=== PATIENT | female | born 1935 | race Caucasian/White ===

== ENCOUNTER 2023-04-15 14:27 | Inpatient (IN) | payer OTHER ==
[~2023-04-15] VITALS: Ht 165.1 cm; Wt 74.8 kg
[2023-04-15] MEDS ORDERED: SYNTHROID88 MCG PO (14:51)
[2023-04-15] MEDS ORDERED: MEMANTINE HCL ER7 MG PO (14:52)
--- NOTE | 2023-04-15 14:53 | NUR ---
SE RECIBE PACIENTE LA CUAL ESTA ORIENTADA Y ALERTA X3 LA MISAM REFIERE PRESENTAR DOLOR EN LA PELVIS AL ORINAR, Y CALENTON EN EL ATRASTO URINARIO.
--- NOTE | 2023-04-15 17:41 | NUR ---
EVALUA PTE. SE EDUCA A FAMILIAR SOBRE [place] MEDICO, REFIERE COMPRENDER. SE REALIZAN MUESTRAS DE LABORATORIO BAJO MEDIDAS ASEPTICAS. SE ADMINISTRAN MEDICAMENTOS JARRETT ORDEN MEDICA. SE COORDINA CT.
[2023-04-17] MEDS ORDERED: BETHANECHOL CHL50 MG (11:34)
[2023-04-17] MEDS ORDERED: LANTUS SOL100 UNIT/1 (11:34)
[2023-04-17] MEDS ORDERED: SILVER SULFADIA50 GM (11:35)
[2023-04-17] MEDS ORDERED: PROCTOCREAM-HC30 GM (11:35)
[2023-04-17] MEDS ORDERED: OMEGA-3 ACID ETH1 GM (11:35)
[2023-04-17] MEDS ORDERED: JANUMET 50-5001 EACH (11:35)
[2023-04-17] MEDS ORDERED: GABAPENTIN300 M2 (11:35)
[2023-04-17] MEDS ORDERED: TAMSULOSIN HCL0.4 MG (11:35)
[2023-04-17] MEDS ORDERED: ROSUVASTATIN CA10 MG (11:35)
[2023-04-17] MEDS ORDERED: CANDESARTAN-HC1 EACH (11:35)
== END 2023-04-18 14:31 | disposition home or self-care (01) | DRG 389 ==
LOC: EDBD 14:27 → ER 14:27 → SEC-K 21:34 → MEDI 04-16 03:19 → SEC-K 04-16 03:33 → SURG 04-16 10:04
PROVIDERS: ADMIT Internal Medicine; ATTEND Internal Medicine
PROC: BW21ZZZ Computerized Tomography (CT Scan) of Abdomen and Pelvis (ICD-10-PCS; principal; 2023-04-15)
PROC: BW28ZZZ Computerized Tomography (CT Scan) of Head (ICD-10-PCS; 2023-04-17)
PROC: B345ZZZ Ultrasonography of Bilateral Common Carotid Arteries (ICD-10-PCS; 2023-04-17)
DX: K56.41 Fecal impaction (principal); N13.30 Unspecified hydronephrosis; N32.0 Bladder-neck obstruction; I10 Essential (primary) hypertension; E11.9 Type 2 diabetes mellitus without complications; Z79.4 Long term (current) use of insulin; Z20.822 Contact with and (suspected) exposure to COVID-19; E03.9 Hypothyroidism, unspecified